=== PATIENT | male | born 1995 | race Caucasian/White ===

== ENCOUNTER 2024-08-11 13:19 | Outpatient (CLI) | payer OTHER ==
[2024-08-11 14:23] LABS: Hematocrit 43.2 % (42.0-52.0); Hemoglobin 14.9 g/dL (14.0-18.0); Mean Corpuscular HGB CONC 34.5 g/dL (32.0-36.0); Mean Corpuscular Hemoglobin 31.4 pg (27.0-31.0); Mean Corpuscular Volume 90.9 fL (78.0-98.0); Mean Platelet Volume 11.2 fL (7.4-10.4); Platelet Count 182 10x3/uL (130-400); RBC Distribution Width 11.6 % (11.5-14.5); Red Blood Cell (RBC) Count 4.75 mill/uL (4.70-6.10)
== END 2024-08-11 13:20 | disposition home or self-care (01) ==
LOC: LABBT 13:19
PROVIDERS: ATTEND Orthopaedic Surgery
DX: Z01.812 Encounter for preprocedural laboratory examination (principal); S62.604A Fracture of unspecified phalanx of right ring finger, initial encounter for closed fracture
CPT/HCPCS: 85027

== ENCOUNTER 2024-08-13 12:04 | Day surgery (SDC) | payer OTHER ==
[2024-08-11 13:37] VITALS: BMI 22.4
[2024-08-13] MEDS ORDERED: Midazolam HCl 2 mg/2 ml Vial ONE (12:09)
[2024-08-13] MEDS ORDERED: CEFAZOLIN 2 GM VIAL ONE (12:11)
[2024-08-13] MEDS ORDERED: PROPOFOL 20 ML ONE (12:15)
[2024-08-13] MEDS ORDERED: Ondansetron PF 4 MG/2 ML Vial ONE (12:15)
[2024-08-13] MEDS ORDERED: Lidocaine 2% PF 5 ML VIAL ONE (12:15)
[2024-08-13] MEDS ORDERED: fentaNYL PF 100 MCG/2 ML SYRINGE ONE (12:15)
[2024-08-13] MEDS ORDERED: fentaNYL 50 mcg/mL 1 mL Vial ONE (12:34)
[2024-08-13] MEDS ORDERED: Bupivacaine PF 0.5% 30 ML VIAL ONE (14:39)
== END 2024-08-13 15:01 | disposition home or self-care (01) ==
LOC: SDC 12:04
PROVIDERS: ATTEND Orthopaedic Surgery
PROC: 0PST34Z Reposition Right Finger Phalanx with Internal Fixation Device, Percutaneous Approach (ICD-10-PCS; principal; 2024-08-13)
DX: S62.604A Fracture of unspecified phalanx of right ring finger, initial encounter for closed fracture (principal); X58.XXXA Exposure to other specified factors, initial encounter
CPT/HCPCS: A6223; C1713; J0665; J2250; J2405; J2704; J3010